=== PATIENT | female | born 1975 | race African-American/Black ===

== ENCOUNTER 2020-01-26 11:24 | Outpatient (REF) | payer OTHER, SELFPAY ==
--- NOTE | 2020-01-26 | MM_ITS ---
EXAMINATION: MM SCREENING DIGITAL BREAST TOMOSYNTHESIS, BILATERAL CLINICAL INFORMATION: Screening. Asymptomatic. No prior breast imaging. Age 44. No known family history breast cancer. The lifetime risk of breast cancer based on the Tyrer-Cuzick Model is 12%. COMPARISON: None (current study represents initial baseline exam). TECHNIQUE: Digital breast tomosynthesis is performed in both the craniocaudal and mediolateral oblique views along with computer-aided detection (CAD). Synthesized 2D images are generated from the tomosynthesis. FINDINGS: There are scattered areas of fibroglandular density (ACR BI-RADS breast composition Category b). There are no significant masses, abnormal calcifications, or other abnormalities. There are benign round and dermal calcifications predominantly bilateral posterior medial breasts. The bilateral axilla are unremarkable. The skin contours are smooth. MM/MM tomosynthesis screening BI IMPRESSION: No mammographic evidence of malignancy. ASSESSMENT: BI-RADS 2: Benign RECOMMENDATION: Routine annual mammography screening. This patient's information was entered into a reminder system with a target due date for their next mammogram.
== END 2020-01-26 11:25 | disposition home or self-care (01) ==
LOC: HO.MAMMO 11:24
PROVIDERS: PCP Nurse Practitioner; Visit Provider Nurse Practitioner
DX: Z12.31 Encounter for screening mammogram for malignant neoplasm of breast (principal)
CPT/HCPCS: 77063; 77067

== ENCOUNTER 2020-08-30 16:09 | Outpatient (REF) | payer OTHER, SELFPAY ==
--- NOTE | ~2020-08-30 | US_ITS ---
EXAMINATION: US PELVIS, COMPLETE CLINICAL INFORMATION: Irregular menses; the last menstrual period was on 08/20/2020. COMPARISON: None TECHNIQUE: Transabdominal and transvaginal imaging was performed. FINDINGS: The uterus is of normal size and echogenicity measuring 7.6 x 3.3 x 3.7 cm. The uterus is anteverted and anteflexed. A regular homogeneous endometrium is identified measuring 0.5 cm. An intrauterine device is seen, properly situated within the endometrial canal. Both ovaries are of normal size and echogenicity. The right ovary measures 2.6 x 2.2 x 2.8 cm for a volume of 8.4 mL. The left ovary measures 2.5 x 1.9 x 1.9 cm for a volume of 4.7 mL. Physiologic ovarian follicles are incidentally noted. There is no pelvic free fluid. No adnexal mass is seen. US/US pelvic and transvaginal IMPRESSION: An intrauterine device is seen, properly situated within the endometrial canal. The examination is otherwise unremarkable.
== END 2020-08-30 16:10 | disposition home or self-care (01) ==
LOC: HO.US 16:09
PROVIDERS: PCP Nurse Practitioner; Visit Provider Nurse Practitioner
DX: N92.5 Other specified irregular menstruation (principal)
CPT/HCPCS: 76830; 76856

== ENCOUNTER 2025-01-11 11:00 | Outpatient (RCR) | payer BC, SELFPAY | END 2025-01-11 16:59 | disposition home or self-care (01) | LOC: HO.WCC 11:00 | PROVIDERS: Visit Provider Surgery Surgical Oncology | DX: S31.104D Unspecified open wound of abdominal wall, left lower quadrant without penetration into peritoneal cavity, subsequent encounter (principal); E66.01 Morbid (severe) obesity due to excess calories; E65 Localized adiposity; I10 Essential (primary) hypertension; E11.9 Type 2 diabetes mellitus without complications; X58.XXXD Exposure to other specified factors, subsequent encounter; Z79.899 Other long term (current) drug therapy | CPT/HCPCS: 97597; 97602; 99212; 99213 ==